=== PATIENT | female | born 1960 | race Caucasian/White ===

== ENCOUNTER 2022-10-13 20:49 | Emergency (ER) | payer OTHER ==
[~2022-10-13] VITALS: Ht 167.6 cm; Wt 79.4 kg
--- NOTE | 2022-10-13 21:15 | NUR ---
[id number] FRM HOME C/O BACK PAIN HX CHRONIC BACK X 10 YEARS. PLACED IN BED, AAOX4, IN PAIN 06/07 PS
[2022-10-13] MEDS ORDERED: KETOROLAC TROMETHAMINE INJ 60 MG/2 ML VIAL IM ONE ×2 (21:30→21:37)
[2022-10-13] MEDS ORDERED: CYCLOBENZAPRINE 10 MG TABLET PO ONE (21:30)
[2022-10-13] MEDS ORDERED: MORPHINE SULFATE INJ 2 MG/ML DISP.SYRIN IM ONE ×2 (21:30→22:30)
[2022-10-13] MEDS ORDERED: DEXAMETHASONE SOD PHOSPHATE 10 MG/ML VIAL IM ONE (21:30)
[2022-10-13] MEDS ORDERED: CYCLOBENZAPRINE 10 MG TABLET ONE (21:37)
[2022-10-13] MEDS ORDERED: DEXAMETHASONE SOD PHOSPHATE 10 MG/ML VIAL ONE (21:37)
[2022-10-13] MEDS ORDERED: MORPHINE SULFATE INJ 2 MG/ML DISP.SYRIN ONE ×2 (21:37→22:20)
[2022-10-13] MEDS ORDERED: CYCL10TA9 PO (23:32)
[2022-10-13] MEDS ORDERED: HYDR-4209 PO (23:32)
[2022-10-13] MEDS ORDERED: PRED50TA PO (23:32)
[2022-10-13] MEDS ORDERED: NAPR500T6 PO (23:32)
--- NOTE | 2022-10-13 23:56 | NUR ---
Patient discharged to home in stable condition. Written and verbal after care instructions given. Patient verbalizes understanding of instruction.
[2022-10-13 23:57] VITALS: BP 153/82
== END 2022-10-13 23:57 | disposition home or self-care (01) ==
LOC: ER 20:51
DX: M54.42 Lumbago with sciatica, left side (principal); I10 Essential (primary) hypertension; G89.29 Other chronic pain; Z79.899 Other long term (current) drug therapy
CPT/HCPCS: 99284; 96372 ×2; 72110; J1100; J1885; J2270 ×2